=== PATIENT | female | born 1995 | race Caucasian/White ===

== ENCOUNTER 2021-01-11 19:21 | Emergency (ER) | payer BC ==
[~2021-01-11] VITALS: Ht 160 cm; Wt 52.4 kg
[2021-01-11 19:24] VITALS: BP 119/71
--- NOTE | 2021-01-11 20:00 | NUR ---
US AT BEDSIDE
--- NOTE | 2021-01-11 20:05 | NUR ---
REPORT GIVEN TO FER GREENBERG.
[2021-01-11 20:14] LABS: BASOPHILS % (AUTO) 1 % (0-1); EOSINOPHILS % (AUTO) 1 % (1-7); LYMPHOCYTES % (AUTO) 29 % (22-44); MEAN CORPUSCULAR HGB CONC 33.7 g/dL (32.4-35.8); MEAN PLATELET VOLUME 7.4 fL (7.4-10.4); MONOCYTES % (AUTO) 8 % (2-9); NEUTROPHILS % (AUTO) 61 % (42-75); PLATELET COUNT 351 x10^3/uL (130-400); RED BLOOD COUNT 3.55 x10^6/uL (3.82-5.3); RED CELL DISTRIBUTION WIDTH 13.2 % (9.6-15.2)
--- NOTE | 2021-01-11 21:05 | NUR ---
Patient/Caregiver given discharge instructions and they have confirmed that they understand the instructions. Patient ambulatory with steady gait. NAD, all questions answered appropriately, denies additional needs at this time. No personal belongings left in room after discharge.
== END 2021-01-11 21:19 | disposition home or self-care (01) ==
LOC: ED 19:51
DX: N93.8 Other specified abnormal uterine and vaginal bleeding (principal)
CPT/HCPCS: 36415; 76830; 84702; 85025; 99284